=== PATIENT | female | born 1965 | race Caucasian/White ===

== ENCOUNTER 2019-03-31 04:25 | Emergency (ER) | payer BC ==
[~2019-03-31] VITALS: Ht 162.6 cm; Wt 114.8 kg
[2019-03-31] MEDS ORDERED: Hydrocodone-Ap1 EA23 PO (04:46)
[2019-03-31] MEDS ORDERED: LOSARTAN POTAS100 MG PO (04:47)
[2019-03-31] MEDS ORDERED: METOPROL SUC TAB 50M (04:47)
[2019-03-31] MEDS ORDERED: HYDCHL25 PO (04:47)
[2019-03-31] MEDS ORDERED: Prednisone20 MG PO (05:28)
== END 2019-03-31 06:04 | disposition home or self-care (01) ==
LOC: ER 04:25
DX: M54.32 Sciatica, left side (principal); Z79.899 Other long term (current) drug therapy; Z79.891 Long term (current) use of opiate analgesic; Z79.52 Long term (current) use of systemic steroids
CPT/HCPCS: 96372; 99283; A9270; J1170; J7512

== ENCOUNTER → 2021-09-14 | Outpatient (CLI) | payer BC ==
[~2021-09-14] MED LIST: HYDCHL25 PO; Hydrocodone-Ap1 EA23 PO; LOSARTAN POTAS100 MG PO; METOPROL SUC TAB 50M; Prednisone20 MG PO
== END | disposition home or self-care (01) ==
LOC: LAB 17:54 → LAB SHORT 17:54
DX: E11.65 Type 2 diabetes mellitus with hyperglycemia (principal)
CPT/HCPCS: 82043

== ENCOUNTER → 2023-01-22 | Outpatient (CLI) | payer BC ==
[2023-01-25 11:12] LABS: HPV 16 Negative (Negative); HPV 18 Negative (Negative); HPV OTHER HR TYPES Negative (Negative)
== END | disposition home or self-care (01) ==
LOC: LAB SHORT 12:00 → LAB 12:00
PROVIDERS: Obstetrics & Gynecology
DX: Z12.4 Encounter for screening for malignant neoplasm of cervix (principal)
CPT/HCPCS: 87624; G0145

== ENCOUNTER → 2023-09-04 | Outpatient (CLI) | payer BC ==
[2023-09-04 15:20] LABS: Microalb/Creat Ratio UR, Rand 21.322 mg/g (0.000-30.000); Microalbumin, Random Urine 25.8 mg/L (0.000-20.000)
[2023-09-05 08:13] LABS: ALKALINE PHOSPHATASE, S 67 IU/L (44-121); ALT (SGPT) 23 IU/L (0-32); AST (SGOT) 18 IU/L (0-40); BILIRUBIN, TOTAL 0.4 mg/dL (0.0-1.2); BUN 23 mg/dL (6-24); BUN/CREATININE RATIO 22 (9-23); CALCIUM, SERUM 9.5 mg/dL (8.7-10.2); CARBON DIOXIDE, TOTAL 27 mmol/L (20-29); CHLORIDE, SERUM 102 mmol/L (96-106); CHOLESTEROL, TOTAL 182 mg/dL (100-199); CREATININE, SERUM 1.05 mg/dL (0.57-1.00); GLOBULIN, TOTAL 2.1 g/dL (1.5-4.5); GLUCOSE, SERUM 228 mg/dL (70-99); HDL CHOLESTEROL 59 mg/dL (>39); LDL CHOLESTEROL CALC 103 mg/dL (0-99); POTASSIUM, SERUM 4.5 mmol/L (3.5-5.2); PROTEIN, TOTAL, SERUM 6.4 g/dL (6.0-8.5); SODIUM, SERUM 141 mmol/L (134-144); TRIGLYCERIDES 115 mg/dL (0-149); VLDL CHOLESTEROL CAL 20 mg/dL (5-40)
== END | disposition home or self-care (01) ==
LOC: LAB SHORT 09:45 → LAB 09:45
PROVIDERS: Hospitalist
DX: E78.5 Hyperlipidemia, unspecified (principal); I10 Essential (primary) hypertension; E11.9 Type 2 diabetes mellitus without complications
CPT/HCPCS: 80053; 80061; 82043; 82570; 83036